=== PATIENT | male | born 1940 | race African-American/Black ===

== ENCOUNTER → 2017-02-01 | Outpatient (CLI) | payer OTHER ==
[~2017-02-01] MED LIST: ADRENOID CAPSU1 EACH PO; ASPIRIN EC81 M1 PO; COUMADIN4 MG PO; COUMADIN6 MG PO; CRESTOR40 MG PO; FERRO-TIME325 MG PO; FISH OIL 1,2001 CAP PO; LOPRESSOR PO; OMNICEF300 MG PO; THERALITH XR T1 EACH PO; VITAMIN B-121000 MCG PO; VITAMIN B650 M1 PO; ZETIA PO
--- NOTE | ~2017-02-01 | EKG ---
PATIENT: PETROS ABBASI UNIT #: [id number] Ventricular Rate: 65 BPM Atrial Rate: 65 BPM P-R Interval: 194 ms QRS Duration: 86 ms Q-T Interval: 392 ms QTC Calculation(Bezet): 407 ms P Decker: 51 degrees Calculated R Decker: 4 degrees Calculated T Decker: 30 degrees Diagnosis Line: Normal sinus rhythm Diagnosis Line: Normal ECG Diagnosis Line: No previous ECGs available Diagnosis Line: Confirmed by CK RODRÍGUEZ MD ([id number]) on 02/01/2017 Diagnosis Line: 10:32:37 PM INTERPRETING MD: ANNE SHAIKH
[2017-02-01 15:13] LABS: HEMATOCRIT 41.5 % (38.0-50.0); HEMOGLOBIN 13.8 gm/dL (13.0-16.0); MEAN CELL VOLUME 83.4 FL (83-96); MEAN CORPUSCULAR HEMOGLOBIN 27.8 PG (28-34); MEAN CORPUSCULAR HGB CONC 33.4 g/dL (30-36); MEAN PLATELET VOLUME 7.4 FL (6.5-11.5); RED BLOOD COUNT 4.98 X10e (3.90-5.60); WHITE BLOOD COUNT 9.4 X10e3 (4.0-10.5)
[2017-02-01 15:46] LABS: BUN/CREATININE RATIO 12.22; CALCIUM SERUM 9.7 mg/dL (8.4-10.2); CREATININE SERUM 0.9 mg/dL (0.6-1.4); GLOM FILT RATE Estimated 96.5 mL/min (>60); POTASSIUM 4.3 mmol/L (3.5-5.1)
== END | disposition home or self-care (01) ==
LOC: CAMB 14:26
PROVIDERS: Specialist
DX: Z01.818 Encounter for other preprocedural examination (principal); K40.90 Unilateral inguinal hernia, without obstruction or gangrene, not specified as recurrent
CPT/HCPCS: 36415; 80048; 85027; 93005

== ENCOUNTER → 2017-02-08 | Day surgery (SDC) | payer OTHER ==
--- NOTE | ~2017-02-08 | OR ---
Unit #: [id number] #: [id number] Patient: PETROS ABBASI [id number] [facility] [address] [place], [place] [address] [id number] MR#: [id number] NAME: PETROS ABBASI ROOM: Date of Procedure: 02/08/2017 Admission Date: 02/08/2017 Surgeon: Monty Frederick M.D. : 1940 Attending Physician: Monty Frederick M.D. Referring Physician: Monty Frederick M.D. Primary Care Physician: Barry Real M.D. OPERATIVE REPORT PREOPERATIVE DIAGNOSIS Reducible right inguinal hernia. POSTOPERATIVE DIAGNOSIS Indirect right inguinal hernia. PROCEDURE PERFORMED Open right inguinal hernia repair with PerFix plug mesh. ANESTHESIA General endotracheal anesthesia. ESTIMATED BLOOD LOSS Less than 20 mL. INDICATIONS FOR PROCEDURE A 76-year-old gentleman, who was brought to the office by his family because of an increasing bulge in the right inguinal region. On examination, he had a reducible right inguinal hernia. According to his , it was causing him intermittent discomfort. DESCRIPTION OF PROCEDURE The patient was admitted to [facility], positively identified, and transported to the operating room, and after induction of general endotracheal anesthesia, he received IV antibiotics per SCIP protocol. His abdominal wall hair was clipped and he was prepped and draped in usual sterile fashion. A transverse incision over the inguinal canal was made. I dissected down through the soft tissue exposing the external oblique aponeurosis. The aponeurosis was opened in direction of fibers to include the external ring. The ilioinguinal nerve was identified and preserved. The cord structures were elevated from the floor of the inguinal canal and encircled with a [place] drain. An indirect hernia sac was identified and from the cord structures. There were no contents, so the sac was inverted back into the peritoneal cavity and held in reduction using a medium PerFix plug. The plug was secured with multiple 0 Ethibond interrupted sutures. The onlay mesh was then placed over the inguinal canal with the toes secured to the pubic tubercle medially. The tails crossed around the internal ring as the cord structures exited and secured to the musculofascial tissues superior and lateral to the internal ring. The limbs were secured to the rectus sheath medially and the shelving edge of inguinal ligament laterally. The cord structures placed back in the anatomic position. 0.5% Marcaine with Unit #: [id number] #: [id number] Patient: PETROS ABBASI epinephrine was infiltrated in the fascia and soft tissue. The soft tissue was closed over the repair using 3-0 Vicryl running suture and the skin was reapproximated with 4-0 Monocryl running subcuticular closure and Dermabond skin adhesive. Sponges and needle counts were correct x3. The patient tolerated the procedure well and transported to recovery in stable condition. Findings and postoperative instructions were discussed with his . Dictated by... Humble Reynoso/helen TD: 02/09/2017 00:04 JOB #: [id number] OPERATIVE REPORT Page 1 of 1 X Monty Frederick MD X PROCEDURE OPERATIVE NOTE
[2017-02-08 06:44] LABS: INR 1.2; PROTHROMBIN TIME (PATIENT) 12.6 SECONDS (9.6-11.5)
== END | disposition home or self-care (01) ==
LOC: CSUR 05:45
PROVIDERS: Specialist
PROC: 0YU50JZ Supplement Right Inguinal Region with Synthetic Substitute, Open Approach (ICD-10-PCS; principal; 2017-02-08 07:30)
DX: K40.90 Unilateral inguinal hernia, without obstruction or gangrene, not specified as recurrent (principal); E78.5 Hyperlipidemia, unspecified; I12.9 Hypertensive chronic kidney disease with stage 1 through stage 4 chronic kidney disease, or unspecified chronic kidney disease; N18.9 Chronic kidney disease, unspecified; F03.90 Unspecified dementia, unspecified severity, without behavioral disturbance, psychotic disturbance, mood disturbance, and anxiety; I27.2 Other secondary pulmonary hypertension; I26.99 Other pulmonary embolism without acute cor pulmonale; M19.90 Unspecified osteoarthritis, unspecified site; Z79.899 Other long term (current) drug therapy; Z79.01 Long term (current) use of anticoagulants; I25.10 Atherosclerotic heart disease of native coronary artery without angina pectoris; Z87.891 Personal history of nicotine dependence; I25.2 Old myocardial infarction; Z85.46 Personal history of malignant neoplasm of prostate; Z98.52 Vasectomy status
CPT/HCPCS: 85610; C1781; J0690; J1650; J2405; J3010